=== PATIENT | male | born 2005 | race Two or more races ===

== ENCOUNTER 2023-11-02 13:40 | Emergency (ER) | payer MEDICAID, OTHER ==
[~2023-11-02] VITALS: Ht 170.2 cm; Wt 100.0 kg
[2023-11-02] MEDS: KETOROLAC TROMETH 60MG/2ML VIAL IM ONE (19:36)
[2023-11-02 19:40] VITALS: BP 143/73; PULSE 57; RESP 16; O2SAT 98
== END 2023-11-02 19:48 | disposition home or self-care (01) ==
LOC: ER 13:40
DX: S43.101A Unspecified dislocation of right acromioclavicular joint, initial encounter (principal); V00.311A Fall from snowboard, initial encounter; Y93.23 Activity, snow (alpine) (downhill) skiing, snowboarding, sledding, tobogganing and snow tubing; Y92.89 Other specified places as the place of occurrence of the external cause; Y99.8 Other external cause status
CPT/HCPCS: 73030; 99283; J1885